=== PATIENT | male | born 1990 | race Caucasian/White ===

== ENCOUNTER 2018-10-29 20:09 | Emergency (ER) | payer OTHER ==
[2018-10-29 20:42] VITALS: O2SAT 99
[2018-10-29] MEDS ORDERED: Lidocaine Hydrochloride 5 ML INJ ONE (20:57)
--- NOTE | 2018-10-29 21:24 | C.PDOC ---
History Of Present Illness 28 year old male presents to the ED for evaluation after he accidentally cut his right index finger while cutting vegetables with a knife prior to arrival. Patient denies extremity numbness/weakness or any other injuries at this time. Patient states he is up-to-date with Tetanus immunization. Time Seen by Provider: 10/29/18 20:34 Chief Complaint (Nursing): Upper Extremity Problem/Injury History Per: Patient History/Exam Limitations: no limitations Onset/Duration Of Symptoms: Hrs Current Symptoms Are (Timing): Still Present Quality: "Pain" Additional History Per: Patient Past Medical History Reviewed: Historical Data, Nursing Documentation, Vital Signs Vital Signs: Last Vital Signs Temp 98.2 F 10/29/18 20:13 Pulse 96 H 10/29/18 20:13 Resp 20 10/29/18 20:13 BP 139/95 H 10/29/18 20:13 Pulse Ox 99 10/29/18 20:13 - Medical History PMH: No Chronic Diseases Surgical History: No Surg Hx Family History: States: Unknown Family Hx - Social History Hx Alcohol Use: Yes Hx Substance Use: No - Immunization History Hx Tetanus Toxoid Vaccination: No Hx Influenza Vaccination: No Hx Pneumococcal Vaccination: No Review Of Systems Skin: Positive for: Other (cut to right index finger ) Neurological: Negative for: Weakness, Numbness Physical Exam - Physical Exam Appears: Non-toxic, No Acute Distress Skin: Normal Color, Warm, Dry, Other (3.5cm laceration to the base of right 2nd finger. no active bleeding or apparent tendon injury ) Eye(s): bilateral: Normal Inspection Extremity: Normal ROM, Capillary Refill (less than 2 seconds ), No Deformity Extremity: Bilateral: Normal Color And Temperature Neurological/Psych: Normal Speech, Normal Cognition, Normal Motor, Normal Sensation ED Course And Treatment O2 Sat by Pulse Oximetry: 99 (on RA) Pulse Ox Interpretation: Normal Progress Note: 3.5cm linear laceration to right 2nd finger. Digital block performed with lidocaine without epinephrine. Wound irrigated with normal saline and explored. No foreign body visualized. No tendon injury. Four 4-0 Nylon sutures placed. Bacitracin and dressing applied. Patient tolerated well with minimal bleeding. On reassessment, patient is resting comfortably and is showing no signs of distress. Patient is given wound care instructions and is stable for discharge. Laceration - Laceration Repair right 2nd finger Wound Length (In cm): 3.5 Description Of Wound: Linear Anesthesia: Lidocaine 1% Wound Examination: Irrigated With Saline, No FB With Wound Exploration, No Tendon Injury With Wound Exploration Wound Closure: Suture (four ) Suture Technique And Material Used: Interrupted, Nylon (4-0) Wound Complexity: Simple Disposition Counseled Patient/Family Regarding: Diagnosis, Need For Followup, Rx Given - Disposition Disposition: HOME/ ROUTINE Disposition Time: 21:21 Condition: STABLE Additional Instructions: Please keep wound clean and and dry Apply small amount of neosporin to area Return to ER if worse Instructions: Laceration Repair With Stitches (DC) Forms: [employer] (Hungarian) - Clinical Impression Clinical Impression: Laceration of finger - PA / NEONATAL INTENSIVE CARE NURSE / Resident Statement MD/DO has reviewed & agrees with the documentation as recorded. - Scribe Statement The provider has reviewed the documentation as recorded by the Scribe (Yoselyn Bauer) All medical record entries made by the Scribe were at my direction and personally dictated by me. I have reviewed the chart and agree that the record accurately reflects my personal performance of the history, physical exam, medical decision making, and the department course for this patient. I have also personally directed, reviewed, and agree with the discharge instructions and disposition.
[2018-10-29] MEDS ORDERED: Bacitracin 500 Units/gm Oint Foilpak UD ONE (21:32)
[2018-10-29 21:38] VITALS: BP 137/99; PULSE 79; RESP 18; TEMP 98.3
== END 2018-10-29 21:39 | disposition home or self-care (01) ==
LOC: C.ER 20:09
DX: S61.210A Laceration without foreign body of right index finger without damage to nail, initial encounter (principal); W26.0XXA Contact with knife, initial encounter; Y93.G1 Activity, food preparation and clean up

== ENCOUNTER 2018-11-09 18:19 | Emergency (ER) | payer OTHER ==
[2018-11-09 18:26] VITALS: BP 150/90; PULSE 108; RESP 20; TEMP 98.2; O2SAT 99
--- NOTE | 2018-11-09 18:37 | C.PDOC ---
History Of Present Illness 28 y/o male presents to ED for suture removal from the left second digit. Patient states he had sutures placed on 10/29/18 and that the area is feeling better. Patient denies bleeding, discharge, or fever. Time Seen by Provider: 11/09/18 18:22 Chief Complaint (Nursing): Suture/Staple Removal History Per: Patient History/Exam Limitations: no limitations Onset/Duration Of Symptoms: Days Ago Current Symptoms Are (Timing): Still Present Past Medical History Reviewed: Historical Data, Nursing Documentation, Vital Signs Vital Signs: Last Vital Signs Temp 98.2 F 11/09/18 18:25 Pulse 108 H 11/09/18 18:25 Resp 20 11/09/18 18:25 BP 150/90 11/09/18 18:25 Pulse Ox 99 11/09/18 18:25 Family History: States: No Known Family Hx - Social History Hx Alcohol Use: Yes Hx Substance Use: No - Immunization History Hx Tetanus Toxoid Vaccination: No Hx Influenza Vaccination: No Hx Pneumococcal Vaccination: No Review Of Systems Except As Marked, All Systems Reviewed And Found Negative. Constitutional: Negative for: Fever Musculoskeletal: Positive for: Hand Pain (Sutures on left 2nd digit, no bleeding or discharge) Physical Exam - Physical Exam Appears: Non-toxic, No Acute Distress Skin: Warm, Dry Head: Atraumatic, Normacephalic Eye(s): bilateral: Normal Inspection Oral Mucosa: Moist Neck: Supple Chest: Symmetrical Extremity: Other (4 intact sutures on palmar aspect appear clean and well- healed, no erythema or discharge) ED Course And Treatment O2 Sat by Pulse Oximetry: 99 (RA) Pulse Ox Interpretation: Normal Progress Note: Sutures were removed. Patient tolerated well. Instructed patient to follow up with PMD in 1-2 days for further evaluation and to return to ER if having worsening symptoms. Disposition Counseled Patient/Family Regarding: Diagnosis, Need For Followup - Disposition Referrals: [facility] [Outside] Disposition: HOME/ ROUTINE Disposition Time: 18:40 Condition: STABLE Additional Instructions: FOLLOW UP WITH YOUR DOCTOR IN 1-2 DAYS RETURN TO ER IF YOU HAVE WORSENING SYMPTOMS, SUCH REDNESS, PAIN, FEVER, BLEEDING, DISCHARGE, ETC Instructions: Stitches Removal Forms: [employer] (Palauan) Print Language: YI - Clinical Impression Clinical Impression: Removal of suture - Scribe Statement The provider has reviewed the documentation as recorded by the Scribe Neris Daus Provider Attestation: All medical record entries made by the Berta were at my direction and personally dictated by me. I have reviewed the chart and agree that the record accurately reflects my personal performance of the history, physical exam, medical decision making, and the department course for this patient. I have also personally directed, reviewed, and agree with the discharge instructions and disposition.
== END 2018-11-09 18:58 | disposition home or self-care (01) ==
LOC: C.ER 18:19
DX: Z48.02 Encounter for removal of sutures (principal)